=== PATIENT | female | born 1985 | race African-American/Black ===

== ENCOUNTER 2017-12-06 06:48 | Emergency (ER) | payer SELFPAY ==
[2017-12-06 07:20] LABS: Bilirubin Negative (Negative); Blood, Urine Large (Negative); Clarity CLOUDY (Clear); Glucose, Urine (Dipstick) Negative (Negative); Leukocyte Negative (Negative); Nitrite Negative (Negative); Protein, Urine (Dipstick) Trace mg/dL (Neg-Trace); Specific Gravity, Urine 1.031 (1.002-1.036); Urobilinogen 0.2 mg/dL (0.2-1.0); pH, Urine 5.5 (5.0-9.0)
[2017-12-06 07:23] LABS: Bacteria/HPF None Seen HPF (None Seen); Hyaline Casts/LPF 0-3 HYALINE CAST LPF (0-3 Hyaline); Pathc Cast-AUWi Flag 0.72 (0-2.49); RBC/HPF GREATER THAN 50-TNTC HPF (0-3); WBC/HPF 0-3 HPF (0-3)
[2017-12-06 08:38] LABS: #Eosinphils 0.2 thou/uL (0.0-0.7); #Lymphocytes 1.8 thou/uL (1.20-3.40); #Monocytes 0.7 thou/uL (0.11-0.59); #Neutrophils 5.4 thou/uL (1.40-6.50); %Basophils 0.4 % (0.0-1.0); %Eosinophils 2.4 % (0.0-10.0); %Lymphocytes 22.7 % (21.0-51.0); %Monocytes 8.3 % (0.0-10.0); %Neutrophils 66.1 % (42.0-75.0); Hemoglobin 10.7 g/dL (12.0-16.0); Mean Corpuscular HGB CONC 30.8 g/dL (32.0-36.0); Mean Corpuscular Hemoglobin 24.5 pg (27.0-31.0); Mean Corpuscular Volume 79.6 fL (78.0-98.0); Mean Platelet Volume 8.4 fL (7.4-10.4); Platelet Count 379 thou/uL (130-400); RBC Distribution Width 15.8 % (11.5-14.5); Red Blood Cell (RBC) Count 4.35 mill/uL (4.20-5.40); White Blood Cell (WBC) Count 8.1 thou/uL (4.8-10.8)
[2017-12-06] MEDS ORDERED: Ondansetron ODT 4 MG TAB ONE (08:58)
[2017-12-06] MEDS ORDERED: Dicyclomine 20 MG TAB ONE (08:58)
[2017-12-06 09:03] LABS: ALT (SGPT) 8 U/L (8-55); AST (SGOT) 12 U/L (5-34); Alkaline Phosphatase 57 U/L (40-150); Anion Gap 12 mmol/L (10-20); BUN (Urea Nitrogen) 18 mg/dL (7.0-18.7); Bilirubin, Total Less than 0.2 mg/dL (0.2-1.2); Calc. Creatinine Clearance 0 mL/min (70-130); Calcium 8.5 mg/dL (7.8-10.44); Carbon Dioxide 21 mmol/L (22-29); Chloride 110 mmol/L (98-107); Estimated GFR-MDRD Greater than 90; Globulin 3.4 g/dL (2.4-3.5); Glucose 105 mg/dL (70-105); Potassium 3.8 mmol/L (3.5-5.1); Protein, Total 7.4 g/dL (6.0-8.3); Sodium 139 mmol/L (136-145)
[2017-12-06 09:47] LABS: Pregnancy Test - Urine (BHCG) Negative (Negative); Pregu Control Background? CLEAR/WHITE (CLR/WHITE); Pregu Control Bar Appear? YES (CONTROL BAR)
--- NOTE | 2017-12-06 11:13 | CT ---
ABDOMEN AND PELVIS CT SCAN WITH IV CONTRAST: HISTORY: A 32-year-old female with a history of abdominal pain for three months, primarily left lower quadrant pain, that is now in the right lower quadrant, and urinary frequency. FINDINGS: The lung bases are clear. The visualized liver, gallbladder, pancreas, spleen, and adrenal glands ar e unremarkable. Several small hypodensities in the left kidney, statistically small cysts. No renal calculi or acute obstruction. There is a large, partially septated, cystic mass in the pelvis, m easuring 10.5 x 12.9 cm in AP and transverse dimensions and approximately 12.9 cm in craniocaudal dim ension. There is a 2.7 cm in diameter enhancing mass, which appears to be part of the fundus of the uterus, probably an intrauterine fibroid, in a subserosal location. A normal appendix is not definit sarah anatomically visualized, but there is no CT evidence for acute appendicitis. IMPRESSION: 1. Large, septated, cystic mass in the pelvis, presumed to be of ovarian origin. Obstetrical/gyneco logical followup in this regard is suggested. Probable subserosal uterine fibroid. 2. Small bilateral renal hypodensities, statistically small cysts. 3. Probable small hiatal hernia. POS: [facility]
--- NOTE | 2017-12-06 13:27 | ULT ---
PELVIC ULTRASOUND: INDICATIONS: Pelvic pain. TECHNIQUE: Transabdominal and endovaginal ultrasound of the pelvis is performed. FINDINGS: A large, complex, cystic mass in the pelvis is seen on CT performed earlier today. Uterine measurements are recorded at 9.3 x 5.1 x 6.4 cm. Endometrial stripe is measured at 1.1 cm. There is a large, complex, cystic, and septated mass, which appears to arise from the right adnexa. Color Doppler and spectral analysis does show flow to what may be a right ovary associated with this mass. The left ovary is not identified. There is free fluid in the pelvis. The free fluid appears to be m ore in the left adnexal region. IMPRESSION: A large, partially septated, complex, cystic mass in the right pelvis, measuring up to 12 cm, which c orresponds to the CT findings. This may be ovarian in origin, although not confirmed. The ultrasoun d findings do not provide significant additional information. The mass is better delineated on CT pe lvis. POS: [facility]
[2017-12-06] MEDS ORDERED: ISOVUE-370 76%-LOCM 1 ML ONE (13:28)
== END 2017-12-06 12:20 | disposition home or self-care (01) ==
LOC: ERS 06:48
DX: N83.201 Unspecified ovarian cyst, right side (principal); N83.202 Unspecified ovarian cyst, left side; J45.909 Unspecified asthma, uncomplicated; F17.210 Nicotine dependence, cigarettes, uncomplicated
CPT/HCPCS: 74177; 76856; 80053; 81003; 81015; 81025; 85025; 96360; 96361; Q0162